=== PATIENT | female | born 1985 | race American Indian/Alaskan Native ===

== ENCOUNTER 2018-08-08 22:02 | Emergency (ER) | payer OTHER ==
[~2018-08-08] VITALS: Ht 167.6 cm; Wt 117.9 kg
[~2018-08-08 22:02] MED LIST: ACET325; AZIT250 PO; CIPR500 PO; HYDACE5 PO; IBUP200; IBUP800 PO; KETO10 PO; LEVFLO500 PO; LEXAPRO; MEDR150I; OXYACE5T PO; PROM25 PO; RANI150 PO; RXOXYACE PO; RXPROM25 PO; SINGULAIR; [UNRECOGNIZED DRUG - OTHER]
[2018-08-08] MEDS ORDERED: ALBU90OI INH (23:04)
== END 2018-08-08 23:13 | disposition home or self-care (01) ==
LOC: ER 22:02
DX: J45.901 Unspecified asthma with (acute) exacerbation (principal); Z87.891 Personal history of nicotine dependence
CPT/HCPCS: 71046; 94640; 99284-25

== ENCOUNTER → 2020-11-28 | Outpatient (CLI) | payer OTHER ==
[~2020-11-28] MED LIST changes: +ALBU90OI INH
== END | disposition home or self-care (01) ==
LOC: LAB 10:55 → LAB SHORT 10:55
DX: L03.90 Cellulitis, unspecified (principal)
CPT/HCPCS: 87070; 87077; 87147; 87186; 87205

== ENCOUNTER → 2020-11-30 | Outpatient (CLI) | payer OTHER | LOC: LAB SHORT 14:09 → LAB 14:09 | DX: L08.9 Local infection of the skin and subcutaneous tissue, unspecified (principal) | CPT/HCPCS: 87070; 87205 ==

== ENCOUNTER → 2021-02-18 | Outpatient (CLI) | payer OTHER | LOC: LAB SHORT 16:30 | DX: I87.2 Venous insufficiency (chronic) (peripheral) (principal); L74.512 Primary focal hyperhidrosis, palms; L74.513 Primary focal hyperhidrosis, soles; L81.0 Postinflammatory hyperpigmentation; L08.9 Local infection of the skin and subcutaneous tissue, unspecified; B35.3 Tinea pedis; Z71.89 Other specified counseling | CPT/HCPCS: 87070; 87205 ==

== ENCOUNTER 2021-09-02 10:37 | Emergency (ER) | payer OTHER ==
[~2021-09-02] VITALS: Ht 167.6 cm; Wt 85.7 kg
[2021-09-02] MEDS ORDERED: ALBU90OI INH (13:59)
[2021-09-02] MEDS ORDERED: HYDR1TAB94 PO (13:59)
[2021-09-02] MEDS ORDERED: Prednisone50 MG PO (13:59)
== END 2021-09-02 14:18 | disposition home or self-care (01) ==
LOC: ER 10:37
DX: J45.901 Unspecified asthma with (acute) exacerbation (principal); R07.89 Other chest pain; Z87.891 Personal history of nicotine dependence
CPT/HCPCS: 36415; 71045; 94644; 94664; J2930; J3010; J3475

== ENCOUNTER 2024-07-02 20:49 | Emergency (ER) | payer OTHER ==
[~2024-07-02] VITALS: Ht 167.6 cm; Wt 99.8 kg
[~2024-07-02 20:49] MED LIST changes: +HYDR1TAB94 PO; +Prednisone50 MG PO
[2024-07-02 20:55] VITALS: BP 131/97
[2024-07-02] MEDS ORDERED: Albuterol 2.5 MG/3 ML VIAL INH ONE (22:30)
[2024-07-02] MEDS ORDERED: RX Prepack Albuterol 1 PREPACK/6.7 GM INH UD ONE (23:10)
== END 2024-07-02 23:23 | disposition home or self-care (01) ==
LOC: ER 20:49
DX: J45.901 Unspecified asthma with (acute) exacerbation (principal); F17.210 Nicotine dependence, cigarettes, uncomplicated; Z79.899 Other long term (current) drug therapy
CPT/HCPCS: 94640; 94664; 99284-25; A9270